=== PATIENT | male | born 1995 | race American Indian/Alaskan Native ===

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

== ENCOUNTER 2020-05-04 11:46 | Emergency (ER) | payer OTHER ==
[2020-05-04 11:53] VITALS: BP 123/69
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
== END 2020-05-04 14:50 | disposition home or self-care (01) ==
LOC: ED 11:46
DX: S16.1XXA Strain of muscle, fascia and tendon at neck level, initial encounter (principal); H91.92 Unspecified hearing loss, left ear; R51.9 Headache, unspecified; Z79.1 Long term (current) use of non-steroidal anti-inflammatories (NSAID); V47.6XXA Car passenger injured in collision with fixed or stationary object in traffic accident, initial encounter; Y93.89 Activity, other specified; Y92.410 Unspecified street and highway as the place of occurrence of the external cause; Y99.8 Other external cause status
CPT/HCPCS: 70450; 70480; 72040